=== PATIENT | female | born 1985 | race African-American/Black ===

== ENCOUNTER 2018-04-09 06:52 | Day surgery (SDC) | payer OTHER ==
[2018-04-08 11:46] VITALS: BMI 29.2
[2018-04-09] MEDS ORDERED: Oxymetazoline HCl 0.05% ( 15 ML ) ONE ×2 (08:13→09:46)
[2018-04-09] MEDS ORDERED: Scopolamine 1.5 mg/72 hour Patch ONE (09:31)
[2018-04-09] MEDS ORDERED: Lidocaine 1% w/Epinephrine 1:100K 30 ML VIAL ONE (09:46)
[2018-04-09] MEDS ORDERED: Bacitracin Zinc Ointment 30 gm TUBE ONE (09:55)
[2018-04-09] MEDS ORDERED: Fentanyl 250 MCG/5 ML VIAL ONE (09:59)
[2018-04-09] MEDS ORDERED: methylPREDNISolone Acetate 40 mg/ml Vial ONE (10:00)
--- NOTE | 2018-04-09 12:26 | OP ---
DATE OF PROCEDURE: 04/09/2018 PREOPERATIVE DIAGNOSES: 1. Recurrent acute sinusitis. 2. Chronic maxillary sinusitis. 3. Bilateral inferior turbinate hypertrophy. 4. Nasal obstruction. POSTOPERATIVE DIAGNOSES: 1. Recurrent acute sinusitis. 2. Chronic maxillary sinusitis. 3. Bilateral inferior turbinate hypertrophy. 4. Nasal obstruction. PROCEDURES: 1. Bilateral endoscopic sinus surgery, total ethmoidectomies. 2. Bilateral endoscopic sinus surgery, maxillary antrostomies. 3. Bilateral inferior turbinate submucosal resection. SURGEON: Luis Dominguez M.D. ESTIMATED BLOOD LOSS: 20 mL. COMPLICATIONS: None. ANESTHESIA: GETA. PROCEDURE: The patient was taken to the operating room and placed supine on the table. General endo tracheal anesthesia was obtained by the Anesthesia staff. Tube was secured in the left lower lip. T he patient was then placed in the beach chair position. Following this, Afrin pledgets were placed i n the nasal cavities. The patient was prepped and draped for standard nasal procedure. Following th is, Afrin pledgets were removed. The 0 degree endoscope was advanced in the nasal cavity. Inferior turbinates were noted to be large. Despite decongestant, middle turbinates were lateralized, thinnin g and lateralizing the uncinate process. Following this, the [place] elevator was used to gently media lize the middle turbinates and the uncinate process was then anteriorly fractured using the ball-ende d probe bilaterally. Following this, the uncinate process was removed using the straight microdebrid er and the natural maxillary sinus ostia was identified and was gently widened using the straight and curved microdebrider blade. Following this, the ethmoidal bulla was identified bilaterally and was punctured on its medial and inferior aspect and was removed. The grand lamella was identified and wa s punctured into the posterior ethmoidal cells. Working from posterior to anterior, the ethmoidal ce lls were opened. Following this, the nasal cavity was irrigated. MeroPacks were placed in the middl e meatus. The inferior turbinates were then punctured with the submucosal microdebrider blade and pinto bmucosal resection was performed of the anterior inferior portions of the inferior turbinates bilater ally. The patient tolerated the procedure well.
[2018-04-09] MEDS ORDERED: HYDROcodone/Acetaminophen 5/325 mg Tablet ONE (12:41)
== END 2018-04-09 13:09 | disposition home or self-care (01) ==
LOC: SDC 06:52
PROVIDERS: ATTEND Otolaryngology Plastic Surgery within the Head & Neck
PROC: 099Q8ZZ Drainage of Right Maxillary Sinus, Via Natural or Artificial Opening Endoscopic (ICD-10-PCS; principal; 2018-04-09)
PROC: 099R8ZZ Drainage of Left Maxillary Sinus, Via Natural or Artificial Opening Endoscopic (ICD-10-PCS; principal; 2018-04-09)
PROC: 09TU8ZZ Resection of Right Ethmoid Sinus, Via Natural or Artificial Opening Endoscopic (ICD-10-PCS; principal; 2018-04-09)
PROC: 09BL7ZZ Excision of Nasal Turbinate, Via Natural or Artificial Opening (ICD-10-PCS; principal; 2018-04-09)
PROC: 09TV8ZZ Resection of Left Ethmoid Sinus, Via Natural or Artificial Opening Endoscopic (ICD-10-PCS; principal; 2018-04-09)
DX: J32.4 Chronic pansinusitis (principal); J34.3 Hypertrophy of nasal turbinates; J34.2 Deviated nasal septum; J34.89 Other specified disorders of nose and nasal sinuses; Z79.899 Other long term (current) drug therapy
CPT/HCPCS: 85014; J1030; J2001; J3010